=== PATIENT | female | born 1975 | race Caucasian/White ===

== ENCOUNTER → 2017-11-13 01:33 | Outpatient (CLI) | payer BC, SELFPAY ==
--- NOTE | 2017-11-13 12:00 | DI.REPORT_ITS ---
SYMPTOMS/DIAGNOSIS: SCREENING, Z12.31 MAMMOGRAMS: Mammograms were interpreted according to the usual protocol including computer analysis with CAD system, tomosynthesis and C view imaging. The breast tissue is heterogeneously radiodense, which lowers the sensitivity of the study. There is no dominant mass. There are no suspicious calcifications. SUMMARY: No evidence of malignancy, category 1. Yearly screening mammography is recommended. Breast density category C. MQSA ASSESSMENT OF FINDINGS: Negative. Category 1. Patient will receive a letter notifying them of these results. Bi-RADS category C. The breasts are heterogeneously dense, which may obscure small masses.
== END ==
PROVIDERS: PCP Family Medicine; Visit Provider Obstetrics & Gynecology
DX: Z12.31 Encounter for screening mammogram for malignant neoplasm of breast (principal)
CPT/HCPCS: 77063; 77067

== ENCOUNTER 2018-10-06 11:45 | Outpatient (CLI) | payer BC, SELFPAY ==
--- NOTE | 2018-10-06 11:27 | DI.RAD_ITS ---
SYMPTOM/DIAGNOSIS: RIGHT HEEL PAIN RIGHT CALCANEUS: Three views. No acute bone or joint abnormality is identified. There is a small spur at the plantar surface of the calcaneus. No radiopaque foreign bodies are seen in the soft tissues. IMPRESSION: No acute abnormality.
== END 2018-10-06 12:05 ==
PROVIDERS: PCP Family Medicine; Visit Provider Physician Assistant
DX: M79.671 Pain in right foot (principal); M77.31 Calcaneal spur, right foot
CPT/HCPCS: 73650

== ENCOUNTER 2019-02-10 12:36 | Outpatient (CLI) | payer BC, SELFPAY ==
--- NOTE | 2019-02-10 14:45 | DI.MAMMO_ITS ---
EXAM: MAMMO SCREENING CLINICAL HISTORY: SCREENING Z12.31 TECHNIQUE: Mammograms were interpreted according to the usual protocol including computer analysis w [employer] CAD system, tomosynthesis and C-view imaging. COMPARISON: Current examination is compared with previous examination of October 2017 FINDINGS: The breasts are heterogeneously dense. No dominant mass or clumped microcalcification is identified in either breast. Current examination is compared with previous examination of October 2017 and there has been no gross interval change in appearance in comparison with the previous study. IMPRESSION: No specific evidence of malignancy at this time. Routine screening examinations are suggested at year ly intervals due to the family history of breast carcinoma. Category 1, breast density category C. BI-RADS Cat 1 - Negative Breast Density - Category C - Heterogeneously dense
[2019-02-10 15:49] LABS: Calculated LDL 118 mg/dL; Cholesterol 192 mg/dL (<200); Glucose 93 mg/dL (74-106); HDL Cholesterol 67 mg/dL (40-60); Triglyceride 39 mg/dL (<150)
== END 2019-02-10 12:56 ==
PROVIDERS: PCP Family Medicine; Visit Provider Obstetrics & Gynecology
DX: Z12.31 Encounter for screening mammogram for malignant neoplasm of breast (principal); Z80.3 Family history of malignant neoplasm of breast; Z13.220 Encounter for screening for lipoid disorders; Z13.1 Encounter for screening for diabetes mellitus
CPT/HCPCS: 36415; 77063; 77067; 80061; 82947

== ENCOUNTER 2021-06-25 13:11 | Outpatient (REF) | payer BC, SELFPAY ==
[2021-06-25 16:59] LABS: HCT 42.3 % (36.0-46.0); HGB 13.9 g/dL (11.2-15.7); MCH 30.6 pg (27.0-33.0); MCHC 32.9 % (32.0-36.0); MCV 93.2 fL (80-95); MPV 10.3 fL (8.0-11.0); Platelet Count 258 10^3/uL (130-400); RBC 4.54 10^6/uL (3.93-5.22); RDW 12.2 % (11.7-14.6); RDW-SD 42.4 fL; WBC 5.52 10^3/uL (4.4-10.8)
[2021-06-25 17:41] LABS: ALT 22 U/L (14-59); AST 20 U/L (15-37); Albumin 4.3 g/dL (3.4-5.0); Alkaline Phosphatase 94 U/L (46-116); Anion Gap 9.2 mmol/L (3-11); BUN 10 mg/dL (7-18); Bilirubin, Total 0.7 mg/dL (0.2-1.0); CO2 25.8 mmol/L (21.0-32.0); CREATININE 0.7 mg/dL (0.55-1.02); Calcium 8.8 mg/dL (8.5-10.1); Chloride 105 mmol/L (98-107); Glucose 86 mg/dL (74-106); Sodium 140 mmol/L (136-145); TSH (W/Ref FT4) 1.91 uIU/mL (0.36-3.74); Total Protein 7.4 g/dL (6.4-8.2)
[2021-06-27 10:19] LABS: HIV-1/2 Ag & Ab Screen Negative (Negative)
[2021-06-27 10:31] LABS: Hepatitis C Ab w Rflx HCV PCR Negative (Negative)
== END 2021-06-25 13:12 | disposition home or self-care (01) ==
LOC: NCHCN 13:11
PROVIDERS: PCP Family Medicine; Visit Provider Nurse Practitioner Family
DX: R63.5 Abnormal weight gain (principal); L65.9 Nonscarring hair loss, unspecified; Z11.4 Encounter for screening for human immunodeficiency virus [HIV]; Z11.59 Encounter for screening for other viral diseases
CPT/HCPCS: 80053; 85027; 86803; 87389; 84443

== ENCOUNTER → 2021-09-05 08:40 | Outpatient (CLI) | payer BC, SELFPAY ==
--- NOTE | 2021-09-05 11:40 | DI.MAMMO_ITS ---
Exam(s) MAMMO SCREENING EXAM: MAMMO SCREENING CLINICAL HISTORY: SCREENING, Z12.39 TECHNIQUE: Bilateral full field digital CC and MLO mammographic images were obtained with 3D tomosyn thesis and utilizing computer aided detection (CAD). COMPARISON: Available for comparison. FINDINGS: Masses/Architectural Distortion: There is a focal asymmetric density in the posterior central left br east on the craniocaudad view. Microcalcifications: No suspicious pleomorphic-type are seen. Skin Thickening/Nipple Retraction: None. IMPRESSION: 1. Focal asymmetric density in the posterior central left breast on the CC view. 2. This area should be further evaluated with a spot compression view. Ultrasound may be indicated a t that time. BI-RADS Category 0 - Assessment Incomplete: Need additional imaging evaluation Breast Density - Category C - Heterogeneously dense Breast density category C or D implies that the patient has dense breast tissue. Dense breast tissue is very common and is not abnormal but dense breast tissue can make it harder to find cancer on a ma mmogram. Also, dense breast tissue may increase their breast cancer risk. This information about the result of the mammogram report was provided to the patient to raise their awareness. Use this report when you speak with the patient about their risks for breast cancer, which includes their family hist ory. At that time, you may recommend for more screening tests (Ultrasound or MRI) as they might be us eful based on their risk. A negative radiographic report should not delay biopsy if a dominant or clinically suspicious mass is present. Up to ten percent of cancers are not identified on mammography. A negative report may reinforce clinical impression. Adenosis and dense breasts may obscure an underlying neoplasm. False positive reports average 6 to 10%. Patient will receive a letter notifying them of these results.
== END ==
PROVIDERS: PCP Family Medicine; Visit Provider Nurse Practitioner Family
DX: Z12.31 Encounter for screening mammogram for malignant neoplasm of breast (principal); R92.8 Other abnormal and inconclusive findings on diagnostic imaging of breast
CPT/HCPCS: 77063; 77067

== ENCOUNTER → 2021-09-12 01:15 | Outpatient (CLI) | payer BC, SELFPAY ==
--- NOTE | 2021-09-12 | DI.US_ITS ---
Exam(s) MG MAMMO SCREEN CALL BACK UNI US BREAST LT LIMITED EXAM: MG MAMMO SCREEN CALL BACK UNI CLINICAL HISTORY: F/U ABNL MAMMO, FOCAL ASYMMETRY DENSITY, CENTRAL LT BREAST, CC VIEW TECHNIQUE: Mammograms were interpreted according to the usual protocol including computer analysis w ith CAD system, tomosynthesis and C-view imaging. COMPARISON: FINDINGS: Additional mammographic views of the left breast and left breast ultrasound are interpreted in conjun ction. These examinations were obtained to evaluate an area of asymmetric density projected posterio rly the central portion of left breast on CC view of prior mammogram. Additional mammographic views fail to show a discrete mass. Breast ultrasound shows cyst approximately 2 cm posterior to the nippl e measuring 8 millimeters in diameter but shows no specific abnormality in the region of the expected location of the mammographically identified finding. IMPRESSION: No specific evidence of malignancy at this time. Follow-up unilateral left breast mammogram requeste d in 6 months. BI-RADS Category 3 - 6 month - Probably Benign Finding: Recommend follow-up mammography in 6 months Breast Density - Category C - Heterogeneously dense
== END ==
PROVIDERS: PCP Family Medicine; Visit Provider Nurse Practitioner Family
DX: Z12.31 Encounter for screening mammogram for malignant neoplasm of breast (principal); R92.8 Other abnormal and inconclusive findings on diagnostic imaging of breast; N60.02 Solitary cyst of left breast
CPT/HCPCS: 76642; 77063; 77067

== ENCOUNTER 2022-03-14 01:39 | Outpatient (CLI) | payer BC, SELFPAY ==
--- NOTE | 2022-03-14 | DI.US_ITS ---
Exam(s) US BREAST LT COMPLETE MG MAMMO DIAGNOSTIC UNI EXAM: MG MAMMO DIAGNOSTIC UNI -LEFT AND COMPLETE LEFT BREAST ULTRASOUND CLINICAL HISTORY: H/O ABNL MAMMO, Z87.898, 6 MO F/U. TECHNIQUE: Unilateral LEFT BREAST spot mammographic images were obtained with 3D tomosynthesis techn ique and utilizing computer aided detection (CAD). COMPLETE LEFT BREAST ULTRASOUND was performed including all 4 quadrants as well as the retroareolar r egion and axillary region. COMPARISON: Prior mammograms were reviewed, the most recent being August 2021. FINDINGS: DIAGNOSTIC LEFT BREAST MAMMOGRAM: Fibroglandular tissue in left breast is again noted be moderately dense. Previously described asymmetric density posteriorly is unchanged both on conventional and spot compre ssion 3D CC view. Has benign appearance mammographically. COMPLETE LEFT BREAST ULTRASOUND: Again the only focal finding is a microcyst in the 6 o'clock position which measures approximately 6 x 3 millimeters and may correspond to the finding on the mammogram. There are no other focal ultraso und findings in all 4 quadrants of the left breast nor in the retroareolar region. Scanning of the ipsilateral axilla is negative for an if again adenopathy IMPRESSION: 1. Stable benign-appearing findings as described above on today's mammogram and ultrasound. Appropriate follow-up is to repeat the left breast spot compression view at the time of her next year ly mammogram which would be in August 2022. Ultrasound should also be repeated at that time. This fin ding needs to be establish is stable for a total of 2 years on a six-month basis prior to putting her back on her yearly schedule.. The patient was informed of the findings and follow-up recommendations by myself prior to leaving the department today. BI-RADS Category 3 - 6 month - Probably Benign Finding: Recommend follow-up mammography in 6 months Breast Density - Category C - Heterogeneously dense Breast density Category C or D implies that the patient has dense breast tissue. Dense breast tissue can make it harder to find cancer on a mammogram. Dense breast tissue is also associated with an incr eased risk of breast cancer. This information about the result of the mammogram report was provided to the patient to raise their awareness. Use this report when you speak with the patient about their risks for breast cancer, which includes their family history. At that time, you may recommend additional screening tests (Ultrasoun d or MRI) as these tests may add significant information. A negative radiographic report should not delay biopsy if a dominant or clinically suspicious mass is present. Up to ten percent of cancers are not identified on mammography. A negative report may reinforce clinical impression. Adenosis and dense breasts may obscure an underlying neoplasm. False positive reports average 6 to 10%. Patient will receive a letter notifying them of these results.
== END 2022-03-14 01:59 ==
PROVIDERS: PCP Family Medicine; Visit Provider Nurse Practitioner Family
DX: Z87.898 Personal history of other specified conditions (principal)
CPT/HCPCS: 76642; 77061; 77065; G0279

== ENCOUNTER 2022-08-13 02:52 | Outpatient (CLI) | payer BC, SELFPAY ==
--- NOTE | 2022-08-13 | DI.RAD_ITS ---
Exam(s) XR LUMBAR SPINE COMPLETE EXAM: XR LUMBAR SPINE COMPLETE CLINICAL HISTORY: LOW BACK PAIN, M54.50,. TECHNIQUE: 2D digital imaging was performed. COMPARISON: No exams were available for comparison FINDINGS: Five views: No evidence of fracture, listhesis, nor pars interarticularis defects. All the disc spac es exhibit normal height. There is no scoliosis. SI joints appear unremarkable. Bone density leatha l. No osseous lesions. Facet joints appear unremarkable IMPRESSION: No significant radiographic findings in the lumbosacral spinal column. DATA REPOSITORY: RADIATION DOSE DELIVERED:
--- NOTE | 2022-08-13 | DI.RAD_ITS ---
Exam(s) XR ELBOW RT COMPLETE EXAM: XR ELBOW RT COMPLETE h CLINICAL HISTORY: RT ELBOW PAIN,M25.521. TECHNIQUE: 2D digital imaging was performed. COMPARISON: No exams were available for comparison FINDINGS: 3 views No evidence of fracture or joint effusion. No swelling of the olecranon bursa. Radial head and neck appear unremarkable as does the capitellum. Epicondyles unremarkable. No degenerative changes in t he elbow joint evident. Also no loose intra-articular bodies. IMPRESSION: No significant radiograph findings in the elbow. DATA REPOSITORY: RADIATION DOSE DELIVERED:
== END 2022-08-13 03:12 ==
LOC: DI 02:55
PROVIDERS: PCP Family Medicine; Visit Provider Nurse Practitioner Family
DX: M54.59 Other low back pain (principal)
CPT/HCPCS: 72110; 73080